=== PATIENT | male | born 1985 | race Hispanic/Latino ===

== ENCOUNTER 2016-09-03 10:32 | Emergency (ER) | payer BC, SELFPAY ==
--- NOTE | 2016-09-03 11:49 | RAD ---
LEFT FOOT 3 VIEWS: HISTORY: Trauma, left foot pain. FINDINGS/IMPRESSION: No acute fracture or dislocation is seen. POS: [facility]
--- NOTE | 2016-09-03 12:00 | RAD ---
TWO VIEWS OF THE LEFT TIBIA AND FIBULA: DATE: 09/03/16. HISTORY: Injury after trauma. The patient dropped a 250 metal valve on the left foot. The patient has contu ubaldo and abrasion to lower left outer portion of the distal left lower extremity. FINDINGS: There is no evidence of a fracture, dislocation, or other osseous abnormality involving the left tib ia or fibula. IMPRESSION: No acute fracture visualized. POS: [facility]
== END 2016-09-03 11:54 | disposition home or self-care (01) ==
LOC: NAV ERS 10:32
DX: S90.32XA Contusion of left foot, initial encounter (principal); S80.12XA Contusion of left lower leg, initial encounter; W31.9XXA Contact with unspecified machinery, initial encounter